=== PATIENT | female | born 1995 | race Caucasian/White ===

== ENCOUNTER → 2020-05-03 | Outpatient (CLI) | payer MEDICAID, SELFPAY ==
[2020-05-03 16:23] LABS: Color, Urine Yellow (Yellow); Glucose, Dipstick Normal (Normal); Ketone-Dipstick Negative (Negative); Leukocyte Esterase-Dipstick 25 /ul (Negative); Nitrite-Dipstick Negative (Negative); Occult Blood-Urine Negative /ul (Negative); Protein-Dipstick Negative (Negative); Urine Bilirubin Dipstick Negative (Negative); Urine Clarity Sl. Cloudy (Clear); Urine Urobilinogen Normal (Normal)
[2020-05-03 16:33] LABS: Amphetamine Urine VISTA NEGATIVE (<1000 ng/mL); Barbiturate Urine VISTA NEGATIVE (< 200 ng/mL); Benzodiazepine Urine VISTA NEGATIVE (< 200 ng/mL); Cocaine Urine VISTA NEGATIVE (< 300 ng/mL); Ecstacy Urine VISTA NEGATIVE (< 500 ng/mL); Methadone Urine VISTA NEGATIVE (< 300 ng/mL); PCP Urine VISTA NEGATIVE (< 25 ng/mL); THC Urine VISTA NEGATIVE (< 50 ng/mL); Vista UDS pH Range 6
[2020-05-03 17:21] LABS: Absolute Lymphocyte Count 2.15 X10^3/uL (0.83-4.51); Absolute Neutrophil Count 8.6 X10^3/uL (2.0-7.7); Basophil# 0.05 X10^3/uL; Basophil% 0.4 % (0-1); Eosinophil# 0.31 X10^3/uL; Eosinophils% 2.6 % (0-5); Hematocrit 40.4 % (37-47); Hemoglobin 13.8 g/dL (12.0-15.0); Lymphocyte # 2.15 X10^3/ul (4.0); Lymphocyte % 17.9 % (19-41); Mean Corp Hgb Conc 34.2 g/dL (32-36); Mean Corpuscular Hgb 30.7 pg (27.0-32.0); Mean Platelet Vol. 11.5 fl (6.2-12.0); Monocyte% 7.5 % (0-10); NRBC Flagged by Analyzer 0 % (0-5); Neutrophil # 8.56 X10^3/uL (2.7-7.7); Neutrophil % 71.3 % (47-70); Platelet Count 251 K/mm3 (150-450); RBC Distribution Width CV 13.2 % (11.6-14.6); RBC Distribution Width SD 43.3 fl (35.1-43.9); Red Blood Count 4.49 M/mm3 (4.2-5.4)
[2020-05-04 11:34] LABS: HIV - WCH Non-Reactive (Nonreactive); Hepatitis B Surface Antigen Non-Reactive (Nonreactive); Hepatitis C Antibody Non-Reactive (Nonreactive); Rubella IgG 14.5 IU/mL
[2020-05-08 03:06] LABS: Chlamydia By Nucleic Acid AMP Negative (Negative)
[2020-05-08 10:44] LABS: Gonococcus By Nucleic Acid AMP Negative (Negative)
[2020-05-08 13:35] LABS: HPV Reflexed? NOT INDICATED
[2020-05-10 05:27] LABS: Prenatal RPR NONREACTIVE (NONREACTIVE)
== END | disposition home or self-care (01) ==
LOC: WOBLAB 15:22
PROVIDERS: Visit Provider Student in an Organized Health Care Education/Training Program
DX: Z34.81 Encounter for supervision of other normal pregnancy, first trimester (principal)
CPT/HCPCS: 36415; 80307; 81002; 85025; 86703; 86762; 86803; 86870; 87340; 87491; 87591; 88175; G0145

== ENCOUNTER → 2020-05-22 | Outpatient (CLI) | payer MEDICAID, SELFPAY | END | disposition home or self-care (01) | LOC: WOBLAB 15:56 | PROVIDERS: Visit Provider Student in an Organized Health Care Education/Training Program | DX: O36.0990 Maternal care for other rhesus isoimmunization, unspecified trimester, not applicable or unspecified (principal); Z3A.00 Weeks of gestation of pregnancy not specified | CPT/HCPCS: 36415; 86850; 86870; 86900; 86901 ==

== ENCOUNTER → 2020-07-27 13:04 | Outpatient (CLI) | payer MEDICAID, SELFPAY ==
[2020-07-27 14:17] LABS: Hematocrit 38.2 % (37-47); Hemoglobin 12.6 g/dL (12.0-15.0); Mean Corpuscular Hgb 28.8 pg (27.0-32.0); Mean Corpuscular Volume 87.4 fL (81-99); Mean Platelet Vol. 11.8 fl (6.2-12.0); Platelet Count 223 K/mm3 (150-450); RBC Distribution Width CV 13.2 % (11.6-14.6); RBC Distribution Width SD 42.3 fl (35.1-43.9); Red Blood Count 4.37 M/mm3 (4.2-5.4); White Blood Count 9.5 K/mm3 (4.4-11.0)
[2020-07-27 14:27] LABS: ALB/GLOB Ratio 0.7 RATIO (0.9-2.4); AST(SGOT) 10 U/L (15-37); Alanine Aminotransfer ALT/SGPT 30 U/L (13-56); Albumin, Serum 2.8 g/dL (3.2-5.0); Alkaline Phosphatase 70 U/L (45-117); Anion Gap 5 (5-15); BUN 6 mg/dL (7-18); BUN/Creat Ratio 9.3 RATIO (10-20); Calcium,Total 8.3 mg/dL (8.5-10.1); Chloride 106 mmol/L (98-107); Creatinine, Serum 0.65 mg/dL (0.55-1.02); EST Glomerular Filtration Rate 117 mL/min (>60); Est Glom Filt Rate - Afr Amer 141 mL/min (>60); Globulin 4.1 g/dL (2.2-4.2); Glucose 114 mg/dL (74-106); Potassium 3.4 mmol/L (3.5-5.1); Protein, Total 6.9 g/dL (6.4-8.2); Sodium Level 137 mmol/L (136-145); T4 Free Direct 0.88 ng/dL (0.76-1.46); Thyroid Stim Hormone (TSH) 1.11 uIU/mL (0.358-3.74)
== END ==
PROVIDERS: Visit Provider Obstetrics & Gynecology
DX: O26.812 Pregnancy related exhaustion and fatigue, second trimester (principal); Z3A.00 Weeks of gestation of pregnancy not specified
CPT/HCPCS: 36415; 80053; 84439; 84443; 85027

== ENCOUNTER → 2020-09-10 14:07 | Outpatient (CLI) | payer MEDICAID, SELFPAY ==
[2020-09-10 15:47] LABS: Hematocrit 35.5 % (37-47); Hemoglobin 11.5 g/dL (12.0-15.0); Mean Corp Hgb Conc 32.4 g/dL (32-36); Mean Corpuscular Hgb 28.7 pg (27.0-32.0); Mean Corpuscular Volume 88.5 fL (81-99); Mean Platelet Vol. 11.8 fl (6.2-12.0); Platelet Count 256 K/mm3 (150-450); RBC Distribution Width CV 14.8 % (11.6-14.6); RBC Distribution Width SD 47.7 fl (35.1-43.9); Red Blood Count 4.01 M/mm3 (4.2-5.4); White Blood Count 11.3 K/mm3 (4.4-11.0)
[2020-09-10 15:55] LABS: Glucose Challenge Gest 1H 50g 101 mg/dL (70-140)
== END ==
PROVIDERS: Visit Provider Obstetrics & Gynecology
DX: Z34.82 Encounter for supervision of other normal pregnancy, second trimester (principal)
CPT/HCPCS: 36415; 82950; 85027

== ENCOUNTER → 2020-10-08 16:51 | Outpatient (CLI) | payer MEDICAID, SELFPAY | PROVIDERS: Visit Provider Obstetrics & Gynecology | DX: Z34.83 Encounter for supervision of other normal pregnancy, third trimester (principal) | CPT/HCPCS: 36415; 86850 ==

== ENCOUNTER → 2020-12-04 | Outpatient (CLI) | payer MEDICAID, SELFPAY | END | disposition home or self-care (01) | LOC: LABSPEC 15:22 | PROVIDERS: Visit Provider Obstetrics & Gynecology | DX: Z36.85 Encounter for antenatal screening for Streptococcus B (principal) | CPT/HCPCS: 87081 ==

== ENCOUNTER 2020-12-23 01:00 | Outpatient (CLI) | payer MEDICAID, SELFPAY ==
[2020-12-23 01:17] VITALS: BP 133/78; PULSE 78; TEMP 36.4; O2SAT 97
[2020-12-23 01:21] VITALS: BMI 34.9
[2020-12-23 01:58] LABS: ROM Internal Control Test YES-OK TO RESULT pt. (Internal QC); ROM Patient Test Negative (Negative)
[2020-12-23 03:41] VITALS: PULSE 96; O2SAT 98
[2020-12-23 05:24] VITALS: BP 126/60; PULSE 99; TEMP 37.2; O2SAT 97
[2020-12-23 08:21] VITALS: BP 140/70; PULSE 100; TEMP 36.7; O2SAT 97
--- NOTE | 2020-12-23 09:05 | OB.TRI.NOTE ---
History of Present Illness Date of Service: 12/23/20 Was patient seen by the physician?: Yes Reason For Visit: RULE OUT LABOR Date of Service: 12/23/20 Final LES: 01/02/21 Final LES Source: US <20 weeks Gestational age: 38 Weeks and 4 Days History of Present Illness: 38+ week intrauterine presents with contractions. Concerned that she might be in labor. Allergies oxycodone Allergy (Verified 12/23/20 01:19) Anaphylaxis Laboratory Studies: Laboratory Tests 12/23/20 Range/Units 01:20 Vag Amniotic Fld Detect Negative (Negative) Physical Exam Vitals: Vital Signs Temp Pulse BP Pulse Ox 98.0 F 100 140/70 H 97 12/23/20 08:21 12/23/20 08:21 12/23/20 08:21 12/23/20 08:21 NST - FHR Rate Baby A Decelerations:: Variable NST Reactive:: Yes FHR Category:: Category I Uterine Activity:: Minimal contractions noted. Impression/Plan 38+ week intrauterine with false labor. NST reactive with occasional sharp variable. Ultrasound at bedside revealed normal fluid with amniotic fluid index of approximately 12. Baby is cephalic. No change in cervix after several hours of monitoring it remains at 4/80/-2. Will discharge to home with routine labor instructions.
== END 2020-12-23 09:15 | disposition home or self-care (01) ==
LOC: WPOUT 01:10 → WP 01:11
PROVIDERS: Referring Provider Obstetrics & Gynecology; Visit Provider Obstetrics & Gynecology
DX: O47.1 False labor at or after 37 completed weeks of gestation (principal); Z3A.38 38 weeks gestation of pregnancy
CPT/HCPCS: 59025; 59050; 84112; 99218; G0378

== ENCOUNTER 2020-12-24 23:48 | Inpatient (IN) | payer MEDICAID, SELFPAY ==
[2020-12-23 01:21] VITALS: BMI 34.9
[2020-12-24 22:27] VITALS: BP 143/78; PULSE 94
[2020-12-24 22:28] VITALS: PULSE 95; O2SAT 98
[2020-12-24 22:41] VITALS: BMI 34.7
[2020-12-24 23:08] LABS: ROM Internal Control Test YES-OK TO RESULT pt. (Internal QC); ROM Patient Test Negative (Negative)
[2020-12-25] VITALS (53 sets, daily range): BP systolic 111–146; BP diastolic 59–81; PULSE 82–133; RESP 18–20; TEMP 36.1–37.5; O2SAT 96–100
[2020-12-25] MEDS: Lactated Ringers 1,000 ML 50 ML IV
[2020-12-25] MEDS: Lactated Ringers 500 ML 999 ML IV (00:05)
[2020-12-25 00:17] LABS: Absolute Lymphocyte Count 1.93 X10^3/uL (0.83-4.51); Absolute Neutrophil Count 9.4 X10^3/uL (2.0-7.7); Basophil# 0.03 X10^3/uL; Basophil% 0.2 % (0-1); Eosinophil# 0.11 X10^3/uL; Eosinophils% 0.9 % (0-5); Hematocrit 36.1 % (37-47); Hemoglobin 11.6 g/dL (12.0-15.0); Lymphocyte # 1.93 X10^3/ul (4.0); Lymphocyte % 15.5 % (19-41); Mean Corp Hgb Conc 32.1 g/dL (32-36); Mean Corpuscular Hgb 26.4 pg (27.0-32.0); Mean Platelet Vol. 12.2 fl (6.2-12.0); Monocyte# 0.91 X10^3/uL; Monocyte% 7.3 % (0-10); NRBC Flagged by Analyzer 0 % (0-5); Neutrophil # 9.38 X10^3/uL (2.7-7.7); Neutrophil % 75.6 % (47-70); Platelet Count 269 K/mm3 (150-450); RBC Distribution Width CV 15.3 % (11.6-14.6); RBC Distribution Width SD 44.4 fl (35.1-43.9); White Blood Count 12.4 K/mm3 (4.4-11.0)
[2020-12-25] MEDS: fentaNYL-bupivacaine (epidural) 100 ML BAG EPIDURAL ×5 (01:35→19:37)
[2020-12-25] MEDS: Lactated Ringers 1,000 ML 200 ML IV ×4 (05:05→20:24)
--- NOTE | 2020-12-25 06:48 | HP.PCM_ITS ---
History and Physical Date of Admission: 12/24/20 HPI: 25 yo G2Po at 39/1, LES 12/31/20 by LMP, admitted overnight for labor. Reports contractions and some leaking. Denies VB. +FM. This is complicated by: Anti0D positive early in immediately after being given Rhogam, resolved. Hx of femur fracture Obstetrical History G1: EAB G2: current Past Medical History Hx of femur fracture Medications PNV Past Surgical History Denies Social History Tobacco use: denies Alcohol use: denies Illicit drug use:denies Labs Blood type: B neg Rubella: immune Hep B/C: neg/neg HIV: neg RPR: nonreactive 1 hour GTT: wnl GBS: neg 12/04 Allergies oxycodone Review of Systems General: alert and oriented HEENT: _denies change of vision Heart/lungs: _denies CP, SOB GI: _denies nausea, vomiting, dysuria, diarrhea MSK: _denies calf pain, tenderness Physical Exam Vital Signs Temp Pulse BP Pulse Ox 12/25/20 06:38 97.0 F L 94 98 12/25/20 06:37 111/60 12/25/20 05:22 91 100 12/25/20 05:21 95 118/59 L 12/25/20 04:56 97.6 F L 100 114/60 12/25/20 03:54 97.3 F L 82 119/65 12/25/20 02:41 104 H 100 12/25/20 02:36 98.3 F 89 100 12/25/20 02:31 98 115/64 100 12/25/20 02:26 88 100 12/25/20 02:21 92 100 12/25/20 02:16 104 H 100 12/25/20 02:11 106 H 100 12/25/20 02:06 92 100 12/25/20 02:01 111 H 100 12/25/20 01:57 90 126/71 H 12/25/20 01:56 98 99 12/25/20 01:51 97.6 F L 101 H 99 12/25/20 01:46 95 99 12/25/20 01:42 106 H 127/69 H 12/25/20 01:40 104 H 100 12/25/20 01:35 103 H 100 12/25/20 01:30 93 100 12/25/20 01:27 88 128/67 H 12/25/20 01:25 94 99 12/25/20 01:20 92 100 12/25/20 01:15 97 99 12/25/20 01:10 94 99 12/25/20 01:05 87 100 12/25/20 01:01 82 146/81 H 12/24/20 22:28 95 98 12/24/20 22:27 94 143/78 H General: a&o x3, NAD HEENT: normocephalic, atraumatic Cardio: no JVD Resp: no increased work in breathing Abdomen: soft, gravid, nontender Extremities: _minimal-moderate edema CE: cervical change from 4 to 5 cm per RN. ROM negative FHT:130/mod jeannette/+accel/no decel [place]:irregular Labs Laboratory Results - last 24 hr 12/24/20 12/25/20 12/25/20 22:30 00:00 00:00 WBC 12.4 H RBC 4.40 Hgb 11.6 L Hct 36.1 L MCV 82.0 MCH 26.4 L MCHC 32.1 RDW Std Deviation 44.4 H RDW Coeff of Jeannette 15.3 H Plt Count 269 MPV 12.2 H Immature Gran % (Auto) 0.500 Neut % (Auto) 75.6 H Lymph % (Auto) 15.5 L [place] % (Auto) 7.3 Eos % (Auto) 0.9 Baso % (Auto) 0.2 Absolute Neuts (auto) 9.4 H Absolute Lymphs (auto) 1.93 Nucleated RBC % 0 Vag Amniotic Fld Detect Negative Blood Type B NEGATIVE Antibody Screen NEGATIVE Assessment & Plan 25 yo G2Po at 39/1, LES 12/31/20 by LMP, admitted overnight for labor.This is complicated by: Anti0D positive early in immediately after being given Rhogam, resolved. Hx of femur fracture Admit to L&D - Routine labor orders - Augment labor with pitocin/AROM when appropriate - GBS neg - CEFM - Anesthesia to see
[2020-12-25] MEDS: Oxytocin 30 units/NS 500 ml 30 UNITS/500 ML IV.SOLN IV (08:07)
[2020-12-25] MEDS: Ondansetron 4 MG/2 ML Vial IV (13:20)
--- NOTE | 2020-12-25 14:55 | PCM.PN.OB ---
Subjective: Patient overall comfortable. But tired after 1 hour of pushing. - Physical Exam Vitals/I&O's: Vital Signs Temp Pulse BP Pulse Ox 97.0 F L 85 124/75 H 96 12/25/20 08:39 12/25/20 14:14 12/25/20 14:14 12/25/20 13:02 Weight: 228 lb 12.8 oz Body Mass Index (BMI) 34.7 Intake and Output for Last 24 Hours 12/23/20 12/24/20 12/25/20 23:59 23:59 23:59 Intake Total 2884.14 / 2884.14 Output Total 800 / 800 Balance 2084.14 / 2084.14 General: Alert, Oriented x3, Cooperative HEENT: Atraumatic, PERRLA, Normocephalic Oral: Moist Mucosa Neck: Supple Extremities: No clubbing, No cyanosis Neurological: Neuro grossly intact Psych/Mental Status: Normal Affect, Appropriate, Alert and oriented to time, place, person, mood and affect Microbiology Past 72 Hours 12/25/20 00:00 Mucosa - Nose SARS-CoV-2 Antigen (Rapid) - Final Laboratory Results 12/24/20 22:30: Vag Amniotic Fld Detect Negative 12/25/20 00:00: WBC 12.4 H, RBC 4.40, Hgb 11.6 L, Hct 36.1 L, MCV 82.0, MCH 26.4 L, MCHC 32.1, RDW Std Deviation 44.4 H, RDW Coeff of Jeannette 15.3 H, Plt Count 269, MPV 12.2 H, Immature Gran % (Auto) 0.500, Neut % (Auto) 75.6 H, Lymph % (Auto) 15.5 L, [place] % (Auto) 7.3, Eos % (Auto) 0.9, Baso % (Auto) 0.2, Absolute Neuts (auto) 9.4 H, Absolute Lymphs (auto) 1.93, Nucleated RBC % 0 12/25/20 00:00: Blood Type B NEGATIVE, Antibody Screen NEGATIVE Current Medications Acetaminophen (Acetaminophen 500 Mg Tablet) 500 - 1,000 mg PO Q6H PRN PRN PRN Reason: Pain Score 1-3 Al Hydroxide/Mg Hydroxide (Mag Hydrox/Al Hydrox/Simeth 30 Ml Udc) 15 - 30 ml PO Q4H PRN PRN PRN Reason: INDIGESTION Citric Acid/Sodium Citrate (Sodium Citrate/Citric Acid 30 Ml Udc) 30 ml PO X1 PRN PRN Reason: Section Ephedrine Sulfate (Ephedrine Sulfate 50 Mg/Ml Ampul) 10 mg IV Q10M PRN PRN Reason: hypotension Ephedrine Sulfate (Ephedrine Sulfate 50 Mg/Ml Ampul) 10 mg IM Q30M PRN PRN Reason: hypotension Fentanyl Citrate (Fentanyl 100 Mcg/2 Ml Ampul) 25 - 50 mcg IV Q2H PRN PRN PRN Reason: Pain Score 4-10 Fentanyl/Bupivacaine/Sodium Chlor (Fentanyl-Bupivacaine (Epidural) 100 Ml Bag) 0 ml EPIDURAL UD [facility]; Protocol Last Admin: 12/25/20 10:17 Dose: 100 ml Documented by: Lactated Ringer's () 500 mls @ 999 mls/hr IV .Q31M PRN PRN Reason: Epidural Last Infusion: 12/25/20 00:36 Dose: Infused Documented by: Lactated Ringer's () 500 mls @ 999 mls/hr IV .Q31M PRN PRN Reason: Corrective Measures Lactated Ringer's () 1,000 mls @ 50 mls/hr IV .Q20H [facility] Last Admin: 12/25/20 10:17 Dose: 200 mls/hr Documented by: Oxytocin/Sodium Chloride () 30 units in 500 mls @ 2 mls/hr IV .Q250H [facility] Last Infusion: 12/25/20 14:14 Dose: 8 mls/hr Documented by: Nalbuphine HCl (Nalbuphine 10 Mg/Ml Ampul) 5 mg IV Q3H PRN PRN PRN Reason: ITCHING Naloxone HCl (Naloxone 0.4 Mg/Ml Syringe) 0.02 mg IV Q1M PRN PRN Reason: RR <10 and pt unresponsive Ondansetron HCl (Ondansetron 4 Mg/2 Ml Vial) 4 mg IV Q4H PRN PRN PRN Reason: NAUSEA Last Admin: 12/25/20 13:20 Dose: 4 mg Documented by: Prochlorperazine Edisylate (Prochlorperazine 10 Mg/2 Ml Vial) 10 mg IV Q6H PRN PRN PRN Reason: NAUSEA Sodium Chloride (0.9% Saline Lock 10 Ml Syringe) 10 - 40 ml IV X1 PRN PRN Reason: SALINE FLUSH Medical Necessity - Tobacco Use Smoking Status: Former smoker Assessment/Plan Patient seen and examined. Called by nursing and inform patient was complete at 1130 labor down per RN for 1 hour. Started pushing at 1245, did 1 hour of pushing with no progression and maternal exhaustion. Upon my examination patient 10/100/0 to -1, no progress with pushing during exam. Educated patient on findings. Discussed pushing for 1-2 more hours versus . Patient at this time based on station not a good candidate for operative delivery. Patient states desire to attempt pushing, educated on maternal exhaustion. Will recheck in 1 to 2 hours if no progress and maternal exhaustion continues will consider primary section.
[2020-12-25] MEDS: 0.9% Saline Lock 10 ML Syringe IV ×3 (19:57→23:30)
--- NOTE | 2020-12-25 21:23 | PCM.PN.OB ---
Subjective: Patient comfortable. Tired with pushing - Physical Exam Vitals/I&O's: Vital Signs Temp Pulse Resp BP Pulse Ox 98.2 F 101 H 20 H 131/67 H 100 12/25/20 20:00 12/25/20 21:18 12/25/20 20:00 12/25/20 20:02 12/25/20 21:18 Oxygen Delivery Method Room Air Weight: 228 lb 12.8 oz Body Mass Index (BMI) 34.7 Intake and Output for Last 24 Hours 12/23/20 12/24/20 12/25/20 23:59 23:59 23:59 Intake Total 6367.47 / 6367.47 Output Total 1400 / 1400 Balance 4967.47 / 4967.47 General: Alert, Oriented x3, Cooperative HEENT: Atraumatic, Normocephalic Oral: Moist Mucosa Neck: Supple Neurological: Neuro grossly intact Psych/Mental Status: Normal Affect, Appropriate, Alert and oriented to time, place, person, mood and affect Microbiology Past 72 Hours 12/25/20 00:00 Mucosa - Nose SARS-CoV-2 Antigen (Rapid) - Final Laboratory Results 12/24/20 22:30: Vag Amniotic Fld Detect Negative 12/25/20 00:00: WBC 12.4 H, RBC 4.40, Hgb 11.6 L, Hct 36.1 L, MCV 82.0, MCH 26.4 L, MCHC 32.1, RDW Std Deviation 44.4 H, RDW Coeff of Jeannette 15.3 H, Plt Count 269, MPV 12.2 H, Immature Gran % (Auto) 0.500, Neut % (Auto) 75.6 H, Lymph % (Auto) 15.5 L, [place] % (Auto) 7.3, Eos % (Auto) 0.9, Baso % (Auto) 0.2, Absolute Neuts (auto) 9.4 H, Absolute Lymphs (auto) 1.93, Nucleated RBC % 0 12/25/20 00:00: Blood Type B NEGATIVE, Antibody Screen NEGATIVE Current Medications Acetaminophen (Acetaminophen 500 Mg Tablet) 500 - 1,000 mg PO Q6H PRN PRN PRN Reason: Pain Score 1-3 Al Hydroxide/Mg Hydroxide (Mag Hydrox/Al Hydrox/Simeth 30 Ml Udc) 15 - 30 ml PO Q4H PRN PRN PRN Reason: INDIGESTION Citric Acid/Sodium Citrate (Sodium Citrate/Citric Acid 30 Ml Udc) 30 ml PO X1 PRN PRN Reason: Section Ephedrine Sulfate (Ephedrine Sulfate 50 Mg/Ml Ampul) 10 mg IV Q10M PRN PRN Reason: hypotension Ephedrine Sulfate (Ephedrine Sulfate 50 Mg/Ml Ampul) 10 mg IM Q30M PRN PRN Reason: hypotension Fentanyl Citrate (Fentanyl 100 Mcg/2 Ml Ampul) 25 - 50 mcg IV Q2H PRN PRN PRN Reason: Pain Score 4-10 Fentanyl/Bupivacaine/Sodium Chlor (Fentanyl-Bupivacaine (Epidural) 100 Ml Bag) 0 ml EPIDURAL UD [facility]; Protocol Last Admin: 12/25/20 19:37 Dose: 100 ml Documented by: Lactated Ringer's () 500 mls @ 999 mls/hr IV .Q31M PRN PRN Reason: Epidural Last Infusion: 12/25/20 00:36 Dose: Infused Documented by: Lactated Ringer's () 500 mls @ 999 mls/hr IV .Q31M PRN PRN Reason: Corrective Measures Lactated Ringer's () 1,000 mls @ 50 mls/hr IV .Q20H [facility] Last Admin: 12/25/20 20:24 Dose: 200 mls/hr Documented by: Oxytocin/Sodium Chloride () 30 units in 500 mls @ 2 mls/hr IV .Q250H [facility] Last Infusion: 12/25/20 14:14 Dose: 8 mls/hr Documented by: Azithromycin 500 mg/ Dextrose 255 mls @ 250 mls/hr IV X1 ONE Stop: 12/25/20 22:17 Cefazolin Sodium 2 gm/ Sodium (Chloride) 110 mls @ 150 mls/hr IV X1 ONE Stop: 12/25/20 21:59 Nalbuphine HCl (Nalbuphine 10 Mg/Ml Ampul) 5 mg IV Q3H PRN PRN PRN Reason: ITCHING Naloxone HCl (Naloxone 0.4 Mg/Ml Syringe) 0.02 mg IV Q1M PRN PRN Reason: RR <10 and pt unresponsive Ondansetron HCl (Ondansetron 4 Mg/2 Ml Vial) 4 mg IV Q4H PRN PRN PRN Reason: NAUSEA Last Admin: 12/25/20 13:20 Dose: 4 mg Documented by: Prochlorperazine Edisylate (Prochlorperazine 10 Mg/2 Ml Vial) 10 mg IV Q6H PRN PRN PRN Reason: NAUSEA Sodium Chloride (0.9% Saline Lock 10 Ml Syringe) 10 - 40 ml IV X1 PRN PRN Reason: SALINE FLUSH Last Admin: 12/25/20 20:31 Dose: 10 ml Documented by: Medical Necessity - Tobacco Use Smoking Status: Former smoker Assessment/Plan Patient seen and examined several times. 1899 reevaluated cervical exam 10/100/+1 position LOT. At that time discussed with patient continued pushing versus operative delivery versus section. After long conversation risk benefits alternatives of each patient discussed she would like to keep pushing for 1 more hour. Patient at that time with left hip pain with pushing desired redosing of epidural, discussed with anesthesia and anesthesia performed redosing. After 1 hour plus of pushing patient reexamined now more comfortable cervical exam 10/100/+2 position LOT. Overall patient in better spirits but exhaustion at this point with pushing greater than 5 hours. Rediscussed pushing versus operative delivery versus section. At this time patient with maternal exhaustion and declines operative delivery, elects for primary section. Educated on the risk benefits alternatives of section include but are not limited to visceral or vascular injury, prolonged hospitalization, blood loss and need for transfusion, need for repeat sections in future pregnancies. Patient state understanding wish to proceed. For 2 g of Ancef and 500 mg azithromycin.
[2020-12-25] MEDS: Sodium Citrate/Citric Acid 30 ML UDC PO (21:40)
[2020-12-25] MEDS: Cefazolin 2 GM in 0.9% Normal Saline 100 ML IV (22:10)
--- NOTE | 2020-12-25 23:08 | DCINST_ITS ---
Discharge Diet: No Restrictions Discharge Activity: Return to Normal Activity, May Drive, May not drive while taking narcotic pain medications., May Shower, - - No tub baths for 2 weeks May resume sexual activity in: 4-6 weeks Lifting Restrictions: No lifting over 25 pounds for 3 weeks Call your doctor if your incision/area has: Continuous Slow Oozing, Foul Smelling Discharge Call your doctor if you observe: Fever of 101 or Higher, Shortness of breath, Chest pain Additional Instructions: If you experience any of the following, contact your healthcare provider. * Bleeding that soaks a pad every hour for 2 hours * Fever 100.4 or higher * Unrelieved incision or abdominal pain * Swelling, redness, discharge or bleeding from your incision or episiotomy site * Your incision begins to separate * Problems urinating (including inability to urinate or burning while urinating). * Visual changes * Severe headache * Flu-like symptoms * Pain or redness in one of both of your breasts * Pain, warmth, tenderness or swelling in your legs, especially the calf area * Frequent nausea and vomiting * Symptoms of depression or anxiety If you experience any of the following, call 911 or go to the nearest Emergency Room. * Chest pain * Problems breathing * Seizure activity * Partial or complete paralysis of a body part, slurred speech, weakness or drooping of the face, or a sudden inability to walk or hold your balance Allergies/Adverse Reactions: Allergies oxycodone Allergy (Verified 12/24/20 22:42) Anaphylaxis Medications to take at Discharge Docosahexanoic Acid [ Dha] 200 mg PO DAILY 12/23/20 Follow-Up: Call to make an appointment with your doctor for an incision check in 1-2 weeks. You will also need a 6 week post- follow up appointment. Test results from this visit will be discussed in further detail at your follow- up appointment, if applicable. Please Follow Up With: Martin Caban MD When: 2-week postoperative check, 4 to 6-week visit
--- NOTE | 2020-12-25 23:10 | OP.PCM_ITS ---
Delivery engineering designer: America Camejo Date of Procedure: 12/25/20 Pre-Operative Diagnosis: Term, failure to progress, maternal exhaustion Post-Operative Diagnosis: Term, failure to progress, maternal exhaustion Description of Procedure: Procedure: Primary section Via Pfannenstiel incision Surgeon: Martin Caban MD Anesthesia: Epidural EBL: 800 cc Fluids: 1000 cc Urine output: 300 cc Complications: None Specimen: None Findings: Female in vertex position Apgars 8/9. Normal uterus, tubes, and ovaries Consent: Patient arrived in labor became complete and pushed for greater than 5 hours with failure to progress in need of primary section. Patient understands the risk of the procedure include but are not limited to visceral or vascular injury, prolonged hospitalization, blood loss and need for transfusion, reoperation. Patient state understanding wish to proceed. All questions were answered consent was signed. Procedure: Patient was brought back to the OR where epidural anesthesia found to be a dequate. 2 g of Ancef and 500 mg of azithromycin were given for infection prophylaxis. Patient was pared and draped in a dorsal supine position with leftward tilt. Pfannenstiel incision made skin with a scalpel. Incision was carried down to the fascia with a scalpel. The fascia was excised extended laterally. Inferior aspect of the fascia was grasped with a clamp and the underlying rectus and pyramidalis ulcer dissected off sharply with Segovia scissors. In a similar fashion superior aspect of the fascia was grasped with a Dillon clamp and the underlying rectus muscle was dissected off sharply. Rectus muscle was dissected at the midline down to the level of the pubic symphysis. Preperitoneal fat tissue was noted and peritoneum was entered bluntly. Peritoneum was extended superiorly and inferiorly with good visualization of bladder. Vesicouterine peritoneum was noted low transverse hysterotomy incision was made. Gentle fundal pressure was applied once the head was brought into the incision and the bladder blade was removed. Head and shoulders were delivered with ease. Cord was cut clamped. They was handed off to nursing. Placenta was delivered via cord traction and fundal massage. Uterus was exteriorized and wiped out with dry laparotomy sponges in order to remove remaining placental membranes. IV oxytocin was initiated in order to facilitate uterine contractions. Uterus was closed in continuous running fashion. Left hysterotomy extension was noted and repaired in 2 layers. Second layer was performed on the hysterotomy. Good hemostasis was noted. Uterus was placed back in the abdominal cavity and good hemostasis was noted. Rectus muscles were reapproximated with horizontal mattress suture. Fascia was closed in a continuous running fashion. Skin was closed in a subcuticular fashion. Good hemostasis was noted. All counts correct x2. Patient tolerated procedure well was brought to recovery in stable condition.
[2020-12-25] MEDS: Oxytocin 30 units/NS 500 ml 30 UNITS/500 ML IV.SOLN 167 UNITS IV (23:20)
[2020-12-25] MEDS: Ketorolac 30 MG/ML Syringe IV (23:30)
[2020-12-25] MEDS: Acetaminophen 500 MG Tablet 1000 MG PO (23:31)
[2020-12-26] VITALS (17 sets, daily range): BP systolic 104–141; BP diastolic 53–77; PULSE 89–116; RESP 14–20; TEMP 36.1–36.6; O2SAT 94–98
--- NOTE | 2020-12-26 02:26 | NURSING ---
report received from terrell. this RN to assume care of pt at this time.
[2020-12-26 04:08] LABS: Hematocrit 30.7 % (37-47); Hemoglobin 9.7 g/dL (12.0-15.0); Mean Corp Hgb Conc 31.6 g/dL (32-36); Mean Corpuscular Hgb 26.6 pg (27.0-32.0); Mean Corpuscular Volume 84.3 fL (81-99); Platelet Count 206 K/mm3 (150-450); RBC Distribution Width CV 15.5 % (11.6-14.6); RBC Distribution Width SD 46.5 fl (35.1-43.9); Red Blood Count 3.64 M/mm3 (4.2-5.4); White Blood Count 16.2 K/mm3 (4.4-11.0)
[2020-12-26] MEDS: Lactated Ringers 1,000 ML 100 ML IV (05:00)
[2020-12-26] MEDS: Ketorolac 30 MG/ML Syringe IV ×3 (05:34→16:58)
[2020-12-26] MEDS: Acetaminophen 500 MG Tablet 1000 MG PO ×4 (05:34→23:34)
[2020-12-26] MEDS: 0.9% Saline Lock 10 ML Syringe IV ×3 (05:34→16:58)
--- NOTE | 2020-12-26 05:57 | NURSING ---
this RN continually attempting to get pt to get out of bed to ambulate. this RN suggesting for pt to stand at bedside and march in place xfew minutes. if pt able to tolerate that, this RN plan to remove fernandez catheter. pt falling asleep mid sentence and states I can't do it. Come back later. Will continue to try to get pt to ambulate and understand the importance of moving post op to prevent blood clots.
--- NOTE | 2020-12-26 09:21 | PN.OBGYN_ITS ---
Subjective: No overnight complaints. Pain well controlled. - Physical Exam Vitals/I&O's: Vital Signs Temp Pulse Resp BP Pulse Ox 97.4 F L 106 H 16 123/57 H 96 12/26/20 08:22 12/26/20 08:22 12/26/20 08:22 12/26/20 08:22 12/26/20 08:22 Oxygen Delivery Method Room Air Weight: 228 lb 12.8 oz Body Mass Index (BMI) 34.7 Intake and Output for Last 24 Hours 12/24/20 12/25/20 12/26/20 23:59 23:59 23:59 Intake Total 7091.80 / 7091.80 1500.00 / 1500.00 Output Total 2200 / 2200 900 / 900 Balance 4891.80 / 4891.80 600.00 / 600.00 General: Alert, Oriented x3, Cooperative, No apparent distress HEENT: Atraumatic, Normocephalic Oral: Moist Mucosa Neck: Supple Extremities: No clubbing, No cyanosis Neurological: Neuro grossly intact Psych/Mental Status: Normal Affect, Appropriate, Alert and oriented to time, place, person, mood and affect Microbiology Past 72 Hours 12/25/20 00:00 Mucosa - Nose SARS-CoV-2 Antigen (Rapid) - Final Laboratory Results 12/26/20 03:43: WBC 16.2 H, RBC 3.64 L, Hgb 9.7 L, Hct 30.7 L, MCV 84.3, MCH 26.6 L, MCHC 31.6 L, RDW Std Deviation 46.5 H, RDW Coeff of Jeannette 15.5 H, Plt Count 206, MPV 12.0 12/26/20 03:43: Screen NEGATIVE, Baby's Blood Type O POSITIVE, Baby's KATHY NEGATIVE Current Medications Acetaminophen (Acetaminophen 500 Mg Tablet) 1,000 mg PO Q6 TINO Last Admin: 12/26/20 05:34 Dose: 1,000 mg Documented by: Bisacodyl (Bisacodyl 10 Mg Suppository) 10 mg RC UD PRN PRN Reason: If no BM Diphenhydramine HCl (Diphenhydramine 25 Mg Capsule) 25 mg PO Q6H PRN PRN PRN Reason: ITCHING Stop: 12/27/20 03:26 Enoxaparin Sodium (Enoxaparin 40 Mg/0.4 Ml Syringe) 40 mg SC DAILY [facility] Hydrocortisone (Hydrocortisone 2.5% Crm) 1 applic TOPICAL TID PRN PRN; Protocol PRN Reason: Discomfort Hydromorphone HCl (Hydromorphone 1 Mg/Ml Syringe) 0.5 - 1.5 mg IV Q3H PRN PRN PRN Reason: Pain Score 4-10 Stop: 12/26/20 23:22 Lactated Ringer's () 1,000 mls @ 100 mls/hr IV .Q10H [facility] Last Infusion: 12/26/20 08:25 Dose: Infused Documented by: Ibuprofen (Ibuprofen 600 Mg Tablet) 600 mg PO Q6 TINO Ketorolac Tromethamine (Ketorolac 30 Mg/Ml Syringe) 30 mg IV Q6H [facility] Stop: 12/26/20 17:22 Last Admin: 12/26/20 05:34 Dose: 30 mg Documented by: Nalbuphine HCl (Nalbuphine 10 Mg/Ml Ampul) 5 mg IV Q3H PRN PRN PRN Reason: ITCHING Stop: 12/27/20 03:26 Naloxone HCl (Naloxone 0.4 Mg/Ml Syringe) 0.02 mg IV Q1M PRN PRN Reason: RR <10 and pt unresponsive Ondansetron HCl (Ondansetron 4 Mg/2 Ml Vial) 4 mg IV Q4H PRN PRN PRN Reason: Nausea Prochlorperazine Edisylate (Prochlorperazine 10 Mg/2 Ml Vial) 10 mg IV Q6H PRN PRN PRN Reason: NAUSEA Senna/Docusate Sodium (Senna/Docusate Sodium 1 Tablet) 0 tablet PO DAILY [facility] Simethicone (Simethicone 80 Mg Tablet) 80 mg PO PCHS PRN PRN Reason: Indigestion/stomach pain Sodium Chloride (0.9% Saline Lock 10 Ml Syringe) 5 - 15 ml IV UD PRN PRN Reason: SALINE FLUSH Last Admin: 12/26/20 05:34 Dose: 10 ml Documented by: Medical Necessity - Tobacco Use Smoking Status: Former smoker Assessment/Plan Postoperative day 1 status post primary section for failure to progress. Pain well controlled. Will likely discharge home tomorrow
[2020-12-26] MEDS: Enoxaparin 40 MG/0.4 ML Syringe SC (11:35)
[2020-12-26] MEDS: Ibuprofen 600 MG Tablet PO (23:34)
[2020-12-27 00:45] VITALS: BP 109/56; PULSE 82; RESP 16; TEMP 36.1; O2SAT 97
[2020-12-27 04:30] VITALS: BP 110/62; PULSE 80; RESP 16; TEMP 36.6; O2SAT 97
[2020-12-27] MEDS: Acetaminophen 500 MG Tablet 1000 MG PO ×2 (05:38→12:19)
[2020-12-27] MEDS: Ibuprofen 600 MG Tablet PO ×2 (05:38→12:19)
--- NOTE | 2020-12-27 07:37 | PN.OBGYN_ITS ---
Subjective: Overnight complaints. Pain well controlled. - Physical Exam Vitals/I&O's: Vital Signs Temp Pulse Resp BP Pulse Ox 97.8 F 80 16 110/62 97 12/27/20 04:30 12/27/20 04:30 12/27/20 04:30 12/27/20 04:30 12/27/20 04:30 Oxygen Delivery Method Room Air Weight: 228 lb 12.8 oz Body Mass Index (BMI) 34.7 Intake and Output for Last 24 Hours 12/25/20 12/26/20 12/27/20 23:59 23:59 23:59 Intake Total 7091.80 / 7091.80 1500.00 / 1500.00 Output Total 2200 / 2200 1900 / 1900 Balance 4891.80 / 4891.80 -400.00 / -400.00 General: Alert, Oriented x3, Cooperative, No apparent distress HEENT: Atraumatic, Normocephalic Oral: Moist Mucosa Neck: Supple Abdomen: Soft, Non Tender Extremities: No clubbing, No cyanosis Neurological: Neuro grossly intact Psych/Mental Status: Normal Affect, Appropriate, Alert and oriented to time, place, person, mood and affect Microbiology Past 72 Hours 12/25/20 00:00 Mucosa - Nose SARS-CoV-2 Antigen (Rapid) - Final Current Medications Acetaminophen (Acetaminophen 500 Mg Tablet) 1,000 mg PO Q6 [facility] Last Admin: 12/27/20 05:38 Dose: 1,000 mg Documented by: Bisacodyl (Bisacodyl 10 Mg Suppository) 10 mg RC UD PRN PRN Reason: If no BM Enoxaparin Sodium (Enoxaparin 40 Mg/0.4 Ml Syringe) 40 mg SC DAILY [facility] Last Admin: 12/26/20 11:35 Dose: 40 mg Documented by: Hydrocortisone (Hydrocortisone 2.5% Crm) 1 applic TOPICAL TID PRN PRN; Protocol PRN Reason: Discomfort Ibuprofen (Ibuprofen 600 Mg Tablet) 600 mg PO Q6 [facility] Last Admin: 12/27/20 05:38 Dose: 600 mg Documented by: Naloxone HCl (Naloxone 0.4 Mg/Ml Syringe) 0.02 mg IV Q1M PRN PRN Reason: RR <10 and pt unresponsive Ondansetron HCl (Ondansetron 4 Mg/2 Ml Vial) 4 mg IV Q4H PRN PRN PRN Reason: Nausea Prochlorperazine Edisylate (Prochlorperazine 10 Mg/2 Ml Vial) 10 mg IV Q6H PRN PRN PRN Reason: NAUSEA Senna/Docusate Sodium (Senna/Docusate Sodium 1 Tablet) 0 tablet PO DAILY [facility] Last Admin: 12/26/20 11:21 Dose: Not Given Documented by: Simethicone (Simethicone 80 Mg Tablet) 80 mg PO PCHS PRN PRN Reason: Indigestion/stomach pain Last Admin: 12/26/20 23:34 Dose: 80 mg Documented by: Sodium Chloride (0.9% Saline Lock 10 Ml Syringe) 5 - 15 ml IV UD PRN PRN Reason: SALINE FLUSH Last Admin: 12/26/20 16:58 Dose: 10 ml Documented by: Medical Necessity - Tobacco Use Smoking Status: Former smoker Assessment/Plan Postoperative day 2 status post primary section for failure to progress. Breast-feeding. Pain well controlled. Will discharge home today
[2020-12-27 09:20] VITALS: BP 100/63; PULSE 89; RESP 18; TEMP 36.6
[2020-12-27] MEDS: Enoxaparin 40 MG/0.4 ML Syringe SC (11:25)
[2020-12-27 15:00] VITALS: BP 127/58; PULSE 97; RESP 18; TEMP 36.6
--- NOTE | 2020-12-28 16:40 | DS.PCM_ITS ---
Discharge Date and Diagnosis Date of Admission: 12/24/20 Date of Discharge: 12/27/20 Hospital Course and Treatment Operations: - - Primary Procedures: None Summary of Care Provided: The patient is a 25 year old F [arrived in labor. Labor was augmented. Patient reached complete dilation pushed for greater than 5 hours and had a primary C- section for failure to progress. Had normal postoperative recovery. And discharged home on postoperative day 2] Subjective: No overnight complaints. Pain well controlled. - Physical Exam Vitals/I&O's: Vital Signs Temp Pulse Resp BP Pulse Ox 97.9 F 97 18 127/58 H 97 12/27/20 15:00 12/27/20 15:00 12/27/20 15:00 12/27/20 15:00 12/27/20 04:30 Oxygen Delivery Method Room Air Weight: 228 lb 12.8 oz Body Mass Index (BMI) 34.7 Intake and Output for Last 24 Hours 12/26/20 12/27/20 12/28/20 23:59 23:59 23:59 Intake Total 1500.00 / 1500.00 Output Total 1900 / 1900 Balance -400.00 / -400.00 General: Alert, Oriented x3, Cooperative, No apparent distress HEENT: Atraumatic, Normocephalic Oral: Moist Mucosa Neck: Supple Abdomen: Soft, Non Tender Extremities: No clubbing, No cyanosis Neurological: Neuro grossly intact Psych/Mental Status: Normal Affect, Appropriate, Alert and oriented to time, place, person, mood and affect Discharge Diet: No Restrictions Discharge Activity: Return to Normal Activity, May Drive, May not drive while taking narcotic pain medications., May Shower, - - No tub baths for 2 weeks May resume sexual activity in: 4-6 weeks Call your doctor if your incision/area has: Continuous Slow Oozing, Foul Smelling Discharge Call your doctor if you observe: Fever of 101 or Higher, Shortness of breath, Chest pain Home Medications: Medications to take at Discharge Docosahexanoic Acid [ Dha] 200 mg PO DAILY 12/23/20 Oxycodone [Oxyir] 5 mg PO Q6H PRN PRN 4 Days #16 tab 12/27/20 Following Prescriptions Were Given to Patient: Oxycodone [Oxyir] 5 mg PO Q6H PRN PRN 4 Days #16 tab PRN Reason: Pain Score 6-10 Transmission Status: Received by [id number] Please Follow Up With: Martin Caban MD When: 2-week postoperative check, 4 to 6-week visit Medical Necessity - Tobacco Use Smoking Status: Former smoker Meaningful Use Info Meaningful Use Diagnoses (Choose all that apply): None applicable
== END 2020-12-27 15:00 | disposition home or self-care (01) | DRG 540 ==
LOC: WPOUT 23:50 → WP 23:50
PROVIDERS: Student in an Organized Health Care Education/Training Program; Admitting Provider Obstetrics & Gynecology; Visit Provider Obstetrics & Gynecology
DX: O32.4XX0 Maternal care for high head at term, not applicable or unspecified (principal); Z3A.39 39 weeks gestation of pregnancy; Z37.0 Single live birth
CPT/HCPCS: 59025; 59050; 84112; 85025; 85027; 85461; 86850; 86900; 86901; 87426; 90384; 99218; 99251; J7120; A4216; G0378; G0463; J2405; J2790

== ENCOUNTER → 2021-02-04 | Outpatient (CLI) | payer MEDICAID, SELFPAY ==
[2021-02-07 20:08] LABS: Chlamydia By Nucleic Acid AMP Negative (Negative)
[2021-02-08 08:29] LABS: Gonococcus By Nucleic Acid AMP Negative (Negative)
== END | disposition home or self-care (01) ==
LOC: LABSPEC 02-05 10:01
PROVIDERS: Visit Provider Obstetrics & Gynecology
DX: Z11.3 Encounter for screening for infections with a predominantly sexual mode of transmission (principal)
CPT/HCPCS: 87491; 87591

== ENCOUNTER → 2022-07-24 | Outpatient (CLI) | payer MEDICAID, SELFPAY ==
[2022-07-24 16:02] LABS: Absolute Lymphocyte Count 1.91 X10^3/uL (0.83-4.51); Absolute Neutrophil Count 8.8 X10^3/uL (2.0-7.7); Basophil# 0.05 X10^3/uL; Basophil% 0.4 % (0-1); Eosinophil# 0.19 X10^3/uL; Eosinophils% 1.6 % (0-5); Hematocrit 39.1 % (37-47); Hemoglobin 12.7 g/dL (12.0-15.0); Lymphocyte # 1.91 X10^3/ul (0.83-4.51); Lymphocyte % 16.1 % (19-41); Mean Corp Hgb Conc 32.5 g/dL (32-36); Mean Corpuscular Hgb 27.6 pg (27.0-32.0); Mean Platelet Vol. 11.6 fl (6.2-12.0); Monocyte# 0.85 X10^3/uL; Monocyte% 7.2 % (0-10); NRBC Flagged by Analyzer 0 % (0-5); Neutrophil # 8.82 X10^3/uL (2.7-7.7); Neutrophil % 74.4 % (47-70); Platelet Count 271 K/mm3 (150-450); RBC Distribution Width CV 14.6 % (11.6-14.6); RBC Distribution Width SD 45.5 fl (35.1-43.9); White Blood Count 11.9 K/mm3 (4.4-11.0)
[2022-07-25 09:42] LABS: HIV - WCH Non-Reactive (Nonreactive); Hepatitis B Surface Antigen Non-Reactive (Nonreactive); Hepatitis C Antibody Non-Reactive (Nonreactive); Rubella IgG Equiv (Nonreactive); Syphilis Antibodies Non-reactive
[2022-07-27 10:27] LABS: V-Zoster IgG (Immunity) 242 index (Immune >165)
[2022-07-28 21:07] LABS: Chlamydia By Nucleic Acid AMP Negative (Negative)
[2022-07-29 14:17] LABS: Gonococcus By Nucleic Acid AMP Negative (Negative)
== END | disposition home or self-care (01) ==
LOC: WOBLAB 15:43
PROVIDERS: Visit Provider Obstetrics & Gynecology
DX: Z34.81 Encounter for supervision of other normal pregnancy, first trimester (principal)
CPT/HCPCS: 36415; 85025; 86703; 86762; 86780; 86787; 86803; 87086; 87340; 87491; 87591

== ENCOUNTER → 2022-12-05 | Outpatient (CLI) | payer MEDICAID, SELFPAY ==
[2022-12-05 12:22] LABS: Absolute Lymphocyte Count 1.21 X10^3/uL (0.83-4.51); Absolute Neutrophil Count 8.7 X10^3/uL (2.0-7.7); Basophil# 0.03 X10^3/uL; Basophil% 0.3 % (0-1); Eosinophil# 0.12 X10^3/uL; Eosinophils% 1.1 % (0-5); Hematocrit 35.4 % (37-47); Hemoglobin 11.6 g/dL (12.0-15.0); Lymphocyte # 1.21 X10^3/ul (0.83-4.51); Lymphocyte % 11.4 % (19-41); Mean Corp Hgb Conc 32.8 g/dL (32-36); Mean Corpuscular Hgb 28.1 pg (27.0-32.0); Mean Corpuscular Volume 85.7 fL (81-99); Mean Platelet Vol. 11.4 fl (6.2-12.0); Monocyte# 0.49 X10^3/uL; Monocyte% 4.6 % (0-10); NRBC Flagged by Analyzer 0 % (0-5); Neutrophil % 82.1 % (47-70); Platelet Count 262 K/mm3 (150-450); RBC Distribution Width CV 15.8 % (11.6-14.6); RBC Distribution Width SD 49.1 fl (35.1-43.9); Red Blood Count 4.13 M/mm3 (4.2-5.4); White Blood Count 10.6 K/mm3 (4.4-11.0)
[2022-12-05 12:45] LABS: Glucose Challenge Gest 1H 50g 115 mg/dL (70-140)
[2022-12-05 13:02] LABS: Syphilis Antibodies Non-reactive
== END | disposition home or self-care (01) ==
LOC: WOBLAB 11:34
PROVIDERS: Visit Provider Obstetrics & Gynecology
DX: Z34.82 Encounter for supervision of other normal pregnancy, second trimester (principal)
CPT/HCPCS: 36415; 82950; 85025; 86780

== ENCOUNTER → 2022-12-30 | Outpatient (CLI) | payer MEDICAID, SELFPAY | END | disposition home or self-care (01) | LOC: WOBLAB 15:18 | PROVIDERS: Visit Provider Obstetrics & Gynecology | DX: Z34.83 Encounter for supervision of other normal pregnancy, third trimester (principal) | CPT/HCPCS: 36415; 86850 ==

== ENCOUNTER → 2023-02-18 | Outpatient (CLI) | payer MEDICAID, SELFPAY ==
[2023-02-18 15:12] LABS: Absolute Lymphocyte Count 1.43 X10^3/uL (0.83-4.51); Absolute Neutrophil Count 7.3 X10^3/uL (2.0-7.7); Basophil# 0.02 X10^3/uL; Basophil% 0.2 % (0-1); Eosinophil# 0.06 X10^3/uL; Eosinophils% 0.6 % (0-5); Hematocrit 33.5 % (37-47); Hemoglobin 10.3 g/dL (12.0-15.0); Lymphocyte # 1.43 X10^3/ul (0.83-4.51); Lymphocyte % 15.1 % (19-41); Mean Corp Hgb Conc 30.7 g/dL (32-36); Mean Corpuscular Hgb 25.3 pg (27.0-32.0); Mean Corpuscular Volume 82.3 fL (81-99); Mean Platelet Vol. 11.7 fl (6.2-12.0); Monocyte% 6.3 % (0-10); NRBC Flagged by Analyzer 0 % (0-5); Neutrophil # 7.34 X10^3/uL (2.7-7.7); Neutrophil % 77.5 % (47-70); Platelet Count 249 K/mm3 (150-450); RBC Distribution Width CV 15.9 % (11.6-14.6); RBC Distribution Width SD 47.1 fl (35.1-43.9); Red Blood Count 4.07 M/mm3 (4.2-5.4); White Blood Count 9.5 K/mm3 (4.4-11.0)
== END | disposition home or self-care (01) ==
LOC: WOBLAB 14:13
PROVIDERS: Visit Provider Nurse Practitioner Women's Health
DX: Z34.83 Encounter for supervision of other normal pregnancy, third trimester (principal); Z36.85 Encounter for antenatal screening for Streptococcus B; Z3A.00 Weeks of gestation of pregnancy not specified
CPT/HCPCS: 36415; 85025; 87077; 87081; 87186

== ENCOUNTER 2023-02-21 19:40 | Outpatient (CLI) | payer MEDICAID, SELFPAY ==
[2023-02-21 20:01] VITALS: BP 117/76; PULSE 100; O2SAT 99
[2023-02-21 20:05] VITALS: PULSE 98; TEMP 36.8; O2SAT 100
[2023-02-21 20:15] VITALS: BMI 33.7
--- NOTE | 2023-02-22 09:25 | OB.TRI.NOTE ---
HPI - General General Date of Service: 02/21/23 HPI Narrative SHARON MERCADO, is a 27 F who presents with hip pain PFSH PFSH Home Medications 1 tab PO/SL DAILY 02/21/23 [History Last Taken 02/20/23] sertraline 50 mg tablet (Zoloft) 75 mg PO DAILY Check with primary doctor 02/21/23 [History Last Taken 02/20/23 21:00] Allergy/AdvReac Type Severity Reaction Status Date / Time oxycodone Allergy Anaphylaxis Verified 02/21/23 20:15 Social History Smoking Status: Former smoker History Elective abortions Hx Para 0 Spontaneous abortions Hx # Term Pregnancies Ectopic pregnancies Hx # Pregnancies Multiple births # of living children NST FHR Rate Baby A Baseline: 120 Variability:: Moderate Accelerations:: 15 x 15 Decelerations:: None NST Reactive:: Yes Uterine Activity:: quiet Assessment & Plan (1) : PLAN: Called by nursing with triage report patient with hip pain that is unresolved. Patient denies trauma and denies contractions, denies fevers and chills. Per nursing cervical dilation unchanged from office. [place] quiet. Reviewed possibilities with nursing for causes, discussed to offer patient Flexeril for pain and discussed with nursing to discuss risks of taking Flexeril in . Call back from nursing after discussion with patient about Flexeril and patient declines Flexeril. Okay to discharge home and follow-up at scheduled appointments
== END 2023-02-21 21:00 | disposition home or self-care (01) ==
LOC: WPOUT 19:45 → WP 19:46
PROVIDERS: Visit Provider Obstetrics & Gynecology
DX: O99.891 Other specified diseases and conditions complicating pregnancy (principal); M25.559 Pain in unspecified hip; Z3A.00 Weeks of gestation of pregnancy not specified; Z79.899 Other long term (current) drug therapy
CPT/HCPCS: 59025; 59050; 99221; G0378

== ENCOUNTER 2023-02-25 02:28 | Inpatient (IN) | payer MEDICAID, SELFPAY ==
[2023-02-25] VITALS (36 sets, daily range): BP systolic 98–127; BP diastolic 46–72; PULSE 72–103; RESP 12–21; TEMP 36.2–36.8; O2SAT 96–100; BMI 33.7
--- NOTE | 2023-02-25 00:25 | HP.PCM.OB_ITS ---
History and Physical Date of Admission: 02/25/23 HPI: 27-year-old at 37/6 weeks, LES 03/12/2023 by first trimester ultrasound, presenting with contractions. Denies leaking of fluid, vaginal bleeding. Reports movement. Denies headache vision changes, chest pain or shortness of breath, nausea or vomiting, diarrhea or constipation, fevers or chills. complicated by: Shortened cervical length status post vaginal progesterone, depression on Zoloft, obesity. OB/UN history: G1: 39-week section Medical history: 1. Depression 2. Obesity Surgical history: 1. section Social history: Denies alcohol, drug use. reports hx of vaping. Allergies: 1. Oxycodone causes anaphylaxis Family history: No history of blood clots or bleeding disorders Review of system: Negative otherwise stated above Physical exam Vitals: pending General: In no acute distress, comfortable with contractions Cardiorespiratory: No increased effort Abdomen: Soft, nontender, gravid Extremities: Minimal edema Neurologic: Cranial nerves II through XII grossly intact, no focal deficits Musculoskeletal: Moves all extremities equally Cervical exam: 2.5 cm per RN heart rate:135/mod micheline/+accel/no decel [place]: q5 Assessment/plan: 27-year-old at 37/6 weeks, LES 03/12/2023 by first trimester ultrasound, presenting with contractions. ?Rule out labor. We will draw CBC and type and screen and give IV fluid hydration. We will plan to recheck cervix. ? GBS positive ? Plan for repeat section and bilateral salpingectomy.
[2023-02-25] MEDS: Lactated Ringers 1,000 ML 200 ML IV (01:15)
[2023-02-25 01:31] LABS: Absolute Neutrophil Count 10.2 X10^3/uL (2.0-7.7); Basophil# 0.04 X10^3/uL; Basophil% 0.3 % (0-1); Eosinophil# 0.16 X10^3/uL; Eosinophils% 1.2 % (0-5); Hematocrit 33.3 % (37-47); Hemoglobin 10.3 g/dL (12.0-15.0); Lymphocyte % 15.4 % (19-41); Mean Corp Hgb Conc 30.9 g/dL (32-36); Mean Corpuscular Hgb 25.3 pg (27.0-32.0); Mean Corpuscular Volume 81.8 fL (81-99); Mean Platelet Vol. 11.7 fl (6.2-12.0); Monocyte# 1.08 X10^3/uL; Monocyte% 7.9 % (0-10); NRBC Flagged by Analyzer 0 % (0-5); Neutrophil # 10.19 X10^3/uL (2.7-7.7); Neutrophil % 74.8 % (47-70); Platelet Count 240 K/mm3 (150-450); RBC Distribution Width CV 15.4 % (11.6-14.6); RBC Distribution Width SD 45.5 fl (35.1-43.9); Red Blood Count 4.07 M/mm3 (4.2-5.4); White Blood Count 13.6 K/mm3 (4.4-11.0)
[2023-02-25] MEDS: Lactated Ringers 1,000 ML 999 ML IV ×2 (02:30→05:50)
[2023-02-25] MEDS: Acetaminophen 500 MG Tablet 1000 MG PO ×4 (02:48→21:28)
[2023-02-25] MEDS: Sodium Citrate/Citric Acid 30 ML UDC PO (02:48)
[2023-02-25] MEDS: Cefazolin 2 GM in 0.9% Normal Saline 100 ML IV ×3 (03:00→20:07)
[2023-02-25 03:24] LABS: Syphilis Antibodies Non-reactive
--- NOTE | 2023-02-25 04:02 | EX.PCM.OBRPT ---
Maternal Data Information Final LES: 03/12/23 Details Operative Information Date of Procedure: 02/25/23 Pre-Operative Diagnosis: Gill intrauterine , labor, desires permanent sterilization Post-Operative Diagnosis: Gill intrauterine , labor, desires permanent sterilization Indications Narrative: 27-year-old at 37/6 weeks presenting in labor. Plan for repeat section and bilateral tubal ligation. All risk, benefits, alternatives discussed with patient.? Risk include but are not limited to: Risk of bleeding to the point of transfusion, infection, injury to surrounding tissue including bowel/bladder potentially requiring prolonged Crouch catheter use, VTE, ICU admission.? Patient desires bilateral tubal ligation, has completed childbearing.? Aware that this procedure is permanent.? If she were to become she is to notify provider immediately, due to risk of ectopic .? Classification: DANIEL Type of Anesthesia: Spinal Estimated Blood Loss: 800 cc Fluids Replaced: 1000 cc Findings Description of Procedure: Procedure: Patient taken to the operating room and spinal anesthesia placed. Patient placed in supine position with left lateral tilt. Prepped and draped in the usual sterile fashion. Pfannenstiel skin incision made with scalpel and carried down through subcutaneous tissue. Noting dense fascial and subcutaneous adhesions. Fascia nicked on either side of midline and extended bilaterally using [place] scissors. Dillon clamps placed at the superior fascial edge which was tented up and underlying rectus muscles were dissected off sharply and bluntly at midline. Dillon clamps moved to the inferior fascial edge which was tented up and underlying rectus muscles were dissected off in a similar fashion. Rectus muscles were superiorly at the midline using hemostat. Careful dissection to separate rectus muscles using Bovie was completed. Peritoneum identified and grasped with hemostats, incised with Metzenbaum scissors. Extended bluntly. Bladder blade placed. Lower uterine segment noted to be very thin. Low transverse uterine incision made with scalpel and extended bluntly. Meconium fluid. Hand placed into the uterine cavity and head elevated to the level of the hysterotomy. With the assistance of gentle fundal pressure head descended to the hysterotomy. Unable to deliver with fundal pressure alone. Vacuum applied once. Patient verbally consented, risks and benefits reviewed. Head delivered followed by body. Nuchal cord x1, loose, reduced. Cord clamped and cut. Baby to nursing. Manual extraction of placenta. Uterus exteriorized and cleared of all clots. Hysterotomy closed with a running stitch. Right fallopian tube grasped with Crystal clamps and removed along the mesosalpinx using LigaSure device. Left fallopian tube grasped with [place] clamps and removed along the mesosalpinx using LigaSure device. Bilateral mesosalpinx hemostatic. Uterus replaced into the abdominal cavity. Hemostasis of the mesosalpinx and hysterotomy closure confirmed. Peritoneum reapproximated using a running stitch. Muscle reapproximated using horizontal mattress suture. Fascia closed with running stitch. Subcutaneous tissue reapproximated with suture. Skin closed with a running subcuticular stitch. At the end of the procedure all needle, lap, sponge counts were correct. Urine output: 200 cc clear urine Infant A Gender: Female (1 minute): 8 (5 minute): 9 Complications Complications: None
--- NOTE | 2023-02-25 04:22 | FALS_PTH ---
PATIENT: SHARON MERCADO LOC: [facility] U#:[id number] AGE/SX: 27/F ROOM: WP010 RE02/25/[address]: Dr. Ashley Caban DO : 1995 BED: 1 DIS: 02/26/2023 SPEC #: [id number] RECD: 02/25/23 05:33 STATUS: PEDRO PABLO RECathy #: [id number] GUSTAVO: 02/25/23 04:[address]: Ashley Caban DEPT: SURGICAL PATHOLOGY RECD BY: Cullen Méndez ENTERED: 02/25/23 11:35 SP TYPE: FALL TUBES OTHR DR: Karen Primary Care Phys Tissues: Fallopian tube Procedures: Surgery Specimen Level II HEADER OPERATION: Tubal ligation PRE-OP DIAGNOSIS: Sterilization TISSUE SUBMITTED: Fallopian tubes, suture in right tube MICROSCOPIC DIAGNOSIS Bilateral fallopian tubes, salpingectomy: Bilateral fallopian tubes, no pathologic diagnosis. Right paratubal cyst. SJ:maxi 02/26/2023 MICROSCOPIC DESCRIPTION Slides are reviewed. GROSS DESCRIPTION Received in fixative is one container labeled with the patient's name and designated bilateral fallopian tubes, suture in right. The specimen consists of bilateral fallopian tubes including fimbrial ends. The right fallopian tube measures 8.0 cm in length and 0.5 cm in diameter and the left fallopian tube measures 7.0 cm in length and 0.6 cm in diameter. Sections reveal unremarkable cut surfaces. Meal Room Hand sections are submitted in two cassettes as follows: 1 ? right fallopian tube, 2 ? left fallopian tube. / REBECCA:maxi 02/25/2023 TC:4 CPT: 18619 x2
[2023-02-25] MEDS: Oxytocin 15 Units/NS 250ml 15 UNITS/250 ML IV.SOLN 83 UNITS IV ×2 (04:32→06:13)
[2023-02-25] MEDS: Methylergonovine 0.2 MG/ML Ampul IM (05:24)
[2023-02-25] MEDS: Carboprost Tromethamine 250 MCG/ML Ampul IM (05:34)
[2023-02-25 05:35] LABS: Pathology Specimen OB SEE PATHOLOGY REPORT
[2023-02-25] MEDS: miSOPROStol 200 MCG Tablet 1000 MCG RC (05:37)
[2023-02-25 05:59] LABS: Hematocrit 29.7 % (37-47); Hemoglobin 9.2 g/dL (12.0-15.0)
[2023-02-25] MEDS: 0.9% Saline Lock 10 ML Syringe IV ×3 (06:20→20:06)
--- NOTE | 2023-02-25 06:30 | PCM.PN.OB ---
Subjective Subjective DPatient asymptomatic. No, dizziness, lightheadedness. Pain well controlled. Objective Data Objective Data Vital Signs: Vital Signs Temp Pulse Resp BP Pulse Ox O2 Del Method 97.7 F L 91 12 111/59 L 98 Room Air 02/25/23 04:20 02/25/23 04:20 02/25/23 04:20 02/25/23 04:20 02/25/23 04:20 02/25/23 04:20 Oxygen Delivery Method Room Air Weight: 100.879 kg Body Mass Index (BMI) 33.7 Intake & Output: Intake and Output for Last 24 Hours 02/23/23 02/24/23 02/25/23 23:59 23:59 23:59 Intake Total 1114.5 / 1114.5 Output Total 250 / 250 Balance 864.5 / 864.5 Lab / Micro Data Attestation: I reviewed the patient's lab results. Result Diagrams: 02/25/23 05:45 Labs: Laboratory Results - last 24 hr 02/25/23 01:15: Blood Type B NEGATIVE, Antibody Screen NEGATIVE 02/25/23 01:15: WBC 13.6 H, RBC 4.07 L, Hgb 10.3 L, Hct 33.3 L, MCV 81.8, MCH 25.3 L, MCHC 30.9 L, RDW Std Deviation 45.5 H, RDW Coeff of Jeannette 15.4 H, Plt Count 240, MPV 11.7, Immature Gran % (Auto) 0.400, Neut % (Auto) 74.8 H, Lymph % (Auto) 15.4 L, [place] % (Auto) 7.9, Eos % (Auto) 1.2, Baso % (Auto) 0.3, Absolute Neuts (auto) 10.2 H, Absolute Lymphs (auto) 2.10, Nucleated RBC % 0 02/25/23 01:15: Syphilis Total Ab Non-reactive 02/25/23 05:45: Hgb 9.2 L, Hct 29.7 L Physical Exam Const alert, oriented x3 and no apparent distress HEENT normocephalic Resp normal respiratory effort Cardio regular rate GI soft to palpation and no masses GI Narrative: Uterus firm below umbilicus. Mild tenderness right fundus. No incisional tenderness. Narrative: Large amount of clot removed on bimanual exam from lower uterine segment and cervix. Extremity no pedal edema Neuro no focal motor deficits and no sensory deficits noted Assessment & Plan (1) Delivery by section: PLAN: Postop day 0 status post repeat section and bilateral salpingectomy. Called for bleeding postoperatively. Patient given Methergine. Called again and patient given Hemabate and Cytotec. Called again by RN. Reporting that uterus was firm with massage and then soften. Notified that she had been given the above medications. Order for tranexamic acid 1 g once and to bolus the rest of the Pitocin bag, followed by second bag of Pitocin at routine rate, 1 L LR bolus, CBC. Patient then seen and evaluated. Bedside ultrasound completed noting some clot in the uterine cavity, no blood flow. No evidence of placental tissue. Crouch was draining well, bladder drained/empty on ultrasound. Bimanual exam completed noting large amount of clot in the cervix and lower uterine segment, removed. After removal of clot, uterus remained firm, with minimal bleeding. EBL from surgery 800 cc. Per RN 150 cc in the OR. EBL in the room 1016 cc. Total EBL 1966 cc. CBC showing a slight decrease in hemoglobin. Likely will take longer to equilibrate. We will plan for CBC at 1300 today. Medications patient received: Methergine 0.2 mg at 0524, Hemabate 0.25 mg at 0534, Cytotec 1,[address] at 0537. TXA 1 gm. Pitocin bag bolused, to be followed by additional bag of pitocin. 1L LR bolus. Vitals remained stable. Patient asymptomatic. We will plan p.o. Methergine in 2 hours, followed by every 6 hours for 24 hours. CBC at 1300. Ancef 2 g every 8 hours for 24 hours prophylactically for bimanual massage in the postoperative state. Patient to remain 1 to 1 nursing for additional 2 hours. Reviewed findings, possible causes of hemorrhage, plan of care with patient and her partner. Reviewed findings and plan of care with bedside nurses as well. All questions answered. (2) hemorrhage:
[2023-02-25] MEDS: Lactated Ringers 1,000 ML 100 ML IV (06:52)
[2023-02-25] MEDS: Ketorolac 30 MG/ML Syringe IV ×3 (08:13→20:03)
--- NOTE | 2023-02-25 08:18 | NURSING ---
See hemorrage checklist for meds given, communication with physician, and calculation of blood loss. TENA Ashton
[2023-02-25] MEDS: Senna/Docusate Sodium 1 Tablet PO (09:41)
[2023-02-25 14:01] LABS: Hematocrit 26.6 % (37-47); Hemoglobin 8.6 g/dL (12.0-15.0); Mean Corp Hgb Conc 32.3 g/dL (32-36); Mean Corpuscular Volume 80.4 fL (81-99); Mean Platelet Vol. 11.6 fl (6.2-12.0); Platelet Count 191 K/mm3 (150-450); RBC Distribution Width CV 15.4 % (11.6-14.6); RBC Distribution Width SD 44.9 fl (35.1-43.9); Red Blood Count 3.31 M/mm3 (4.2-5.4); White Blood Count 12.2 K/mm3 (4.4-11.0)
--- NOTE | 2023-02-25 15:45 | CASEMGMT ---
Social Work Brief Assessment - Labor and Delivery Unit Patient Address: [address] [place] [address] Phone number: [phone] Date of Referral/Notification: 02-25-23 Time of Referral: [phone] Referred By: Dr. Ashley Garcia, Reason for Referral: Maternal Mental Health - History of PPD Date of Intervention: 02.25.23 Time of Intervention: Approximately 1525 Informant: Medical record and mother of baby (MOB) Jazmin Aranda History: MOB is a 27 year old single female, involved with the father of baby (FOB) Darrick Aranda. FOB is the father to both of MOB's children. MOB is G2, P1 to 2 after delivering baby girl Shakira Aranda on 02.25.23. Older child at home, a daughter, is Frida Aranda (12.25.20). PNC with [place] and no reported concerns with seeking care. Infant deliver weighing 7 pounds 15 ounces. Apgars 9 and 9 at 1 and 5 minutes of life. FOB is employed and no reported concerns with finances. 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 MOB has WIC and active with S. MOB reports history of depression, and after Frida was born. Started on Zoloft during this , admitting this was a rough one. MOB reports to feel better since starting antidepressant. No reports of any SI history, concerns about substances, and denies having concerns about DV. Assessment: Met with MOB, introducing to self and social work role. MOB pleasant and willing to speak with high school social science teacher. FOB sleeping on couch and appearing to sleep soundly during visit. MOB okay having conversation with FOB sleeping. Hand wrote out DV questions, and MOB denied. MOB reports to have necessary supples to care for baby, no concern about meeting basic needs, and will have help from FOG at home going. Reports additional support from family and MOB's mother. MOB reports to feel good mood suh and plans to stay on Zoloft in the timeframe. No voiced ounces by nursing staff regarding parent child interactions or bonding. MOB accepting to receive information on [facility] and PPD packet. Reviewed shaken baby prevention, safe sleeping and PPD. Plan: MOB and to home when ready. SW to follow back up with MOB for provision of PCP list, PPD and [facility] resources information. -LIZ Davila, NON DESTRUCTIVE TESTING SCIENTIST
--- NOTE | 2023-02-25 16:24 | NURSING ---
This RN called David and talked to TENA Muhammad and updated her on Pt. feeling dizzy around 1300 when I got her up, and the CBC of 8.6. This RN also updated RN on last BP of 98/48 but patient was not symptomatic with blood pressure.
[2023-02-25] MEDS: Enoxaparin 40 MG/0.4 ML Syringe SC (17:00)
--- NOTE | 2023-02-25 19:35 | NURSING ---
David Muhammad called this nurse and stated that Dr. Martin Caban said he does not want a CBC tomorrow unless patient is symptomatic.
[2023-02-25] MEDS: Sertraline 50 MG Tablet 75 MG PO (20:02)
[2023-02-26 00:15] VITALS: BP 96/51; PULSE 85; RESP 15; TEMP 36.6; O2SAT 95
[2023-02-26] MEDS: 0.9% Saline Lock 10 ML Syringe IV ×2 (02:44→11:28)
[2023-02-26] MEDS: Ketorolac 30 MG/ML Syringe IV (02:45)
[2023-02-26] MEDS: Acetaminophen 500 MG Tablet 1000 MG PO ×2 (02:45→10:04)
[2023-02-26] MEDS: Cefazolin 2 GM in 0.9% Normal Saline 100 ML IV ×2 (03:58→11:28)
[2023-02-26] MEDS: Lactated Ringers 1,000 ML 100 ML IV (04:00)
[2023-02-26 04:08] VITALS: BP 99/58; PULSE 76; RESP 16; TEMP 36.9; O2SAT 96
[2023-02-26 08:09] VITALS: BP 94/61; PULSE 82; RESP 17; TEMP 36.6; O2SAT 98
--- NOTE | 2023-02-26 08:40 | DCINST_ITS ---
Discharge Instructions Diet Discharge Diet: No restrictions Activity Discharge Activity: Return to Normal Activity, May Drive, May Shower and - (No tub baths for 2 weeks) May resume sexual activity in: 4-6 weeks Lifting Restrictions: No lifting over 25 pounds for 2 to 3 weeks Dressing / Incision Call your doctor if your incision/area has: Continuous Slow Oozing and Foul Smelling Discharge Call your doctor if you observe: Fever of 101 or Higher, Shortness of breath and Chest pain Follow Up Care Please Follow Up With: Martin Caban MD When: 2 weeks postoperatively Test Results: Test results from this visit will be discussed in further detail at your follow- up appointment, if applicable. Discharge Plan Admission Admit Date/Time: 02/25/23 02:28 Primary Reason for Your Visit: section and tubal ligation Attending Provider: Ashley Caban Primary Care Provider: Karen Parra Primary Discharge Orders/Prescriptions Prescriptions: No Action sertraline [Zoloft] 50 mg Tablet 75 mg PO DAILY 1 tab PO/SL DAILY Referrals / Follow Up: Care Physician,No Primary [Primary Care Provider] - Disposition Disposition (needs filled in before D/C Order can be placed): Home, Self Care
--- NOTE | 2023-02-26 08:41 | PCM.PN.OB ---
Subjective Subjective No overnight complaints. Denies dizziness, weakness, chest pain, shortness of breath. Ambulating with ease, tolerating regular diet Objective Data Objective Data Vital Signs: Vital Signs Temp Pulse Resp BP Pulse Ox O2 Del Method 97.8 F 82 17 94/61 98 Room Air 02/26/23 08:09 02/26/23 08:09 02/26/23 08:09 02/26/23 08:09 02/26/23 08:09 02/26/23 08:09 Oxygen Delivery Method Room Air Weight: 222 lb 6.4 oz Body Mass Index (BMI) 33.7 Intake & Output: Intake and Output for Last 24 Hours 02/24/23 02/25/23 02/26/23 23:59 23:59 23:59 Intake Total 3572.83 / 3572.83 243.33 / 243.33 Output Total 4466 / 4466 600 / 600 Balance -893.17 / -893.17 -356.67 / -356.67 Lab / Micro Data Result Diagrams: 02/25/23 13:15 Labs: Laboratory Results - last 24 hr 02/25/23 13:15: WBC 12.2 H, RBC 3.31 L, Hgb 8.6 L, Hct 26.6 L, MCV 80.4 L, MCH 26.0 L, MCHC 32.3, RDW Std Deviation 44.9 H, RDW Coeff of Jeannette 15.4 H, Plt Count 191, MPV 11.6 Physical Exam Const alert, oriented x3, no apparent distress, average body habitus, healthy appearing and well nourished HEENT normocephalic and moist oral mucous membranes Eyes PERRL Neck full ROM Resp normal respiratory effort, no retractions and no use of accessory muscles GI GI Narrative: Soft, nontender, bandage clean dry and intact, uterus firm and below umbilicus Extremity normal to inspection and full ROM Neuro moves all extremities and no focal motor deficits Psych mental status grossly normal, affect normal, speech normal and activity/motor behavior normal Assessment & Plan (1) Delivery by section: PLAN: Postop day 1 status post repeat section. Breast-feeding. Pain well controlled. hemorrhage, remained will and patient remains asymptomatic vital signs stable. Patient did take ongoing iron. Wishes for discharge home today. Okay for discharge home today if okay with mountain bike guide
[2023-02-26] MEDS: Enoxaparin 40 MG/0.4 ML Syringe SC (10:05)
[2023-02-26] MEDS: Senna/Docusate Sodium 1 Tablet PO (10:05)
--- NOTE | 2023-02-26 14:03 | NURSING ---
pt second IV discontinued in Right AC
[2023-02-26 14:05] VITALS: BP 120/63; PULSE 86; RESP 16; TEMP 36.7; O2SAT 98
--- NOTE | 2023-02-26 16:00 | CASEMGMT ---
Social Work Labor and Delivery Unit Provided MOB with PCP list off of insurance network, [facility], and PPD packet. MOB denies any other needs or concerns with home going. -LIZ Davila, RESISTANCE MACHINE WELDER SETTER
== END 2023-02-26 14:45 | disposition home or self-care (01) | DRG 539 ==
LOC: WPOUT 02:31 → WP 02:31
PROVIDERS: Admitting Provider Student in an Organized Health Care Education/Training Program; Referring Provider Student in an Organized Health Care Education/Training Program; Visit Provider Student in an Organized Health Care Education/Training Program
DX: O26.873 Cervical shortening, third trimester (principal); O72.1 Other immediate postpartum hemorrhage; O99.824 Streptococcus B carrier state complicating childbirth; O99.344 Other mental disorders complicating childbirth; F32.A Depression, unspecified; Z37.0 Single live birth; Z3A.37 37 weeks gestation of pregnancy; Z30.2 Encounter for sterilization; O69.81X0 Labor and delivery complicated by cord around neck, without compression, not applicable or unspecified; O99.214 Obesity complicating childbirth; E66.9 Obesity, unspecified; O34.219 Maternal care for unspecified type scar from previous cesarean delivery
CPT/HCPCS: 59050; 85014; 85018; 85025; 85027; 86780; 86850; 86900; 86901; 88302; 99221; 99406; J7120; A4216; G0378; J2405

== ENCOUNTER → 2023-03-11 | Outpatient (CLI) | payer MEDICAID, SELFPAY ==
[2023-03-11 14:51] LABS: Hemoglobin 10.3 g/dL (12.0-15.0); Mean Corp Hgb Conc 30.3 g/dL (32-36); Mean Corpuscular Hgb 24.7 pg (27.0-32.0); Mean Corpuscular Volume 81.5 fL (81-99); Mean Platelet Vol. 11.3 fl (6.2-12.0); Platelet Count 368 K/mm3 (150-450); RBC Distribution Width CV 15.1 % (11.6-14.6); RBC Distribution Width SD 44.9 fl (35.1-43.9); Red Blood Count 4.17 M/mm3 (4.2-5.4)
[2023-03-11 15:17] LABS: T4 Free Direct 0.79 ng/dL (0.76-1.46)
== END | disposition home or self-care (01) ==
LOC: WOBLAB 13:30
PROVIDERS: Visit Provider Obstetrics & Gynecology
DX: G93.32 Myalgic encephalomyelitis/chronic fatigue syndrome (principal)
CPT/HCPCS: 36415; 84439; 84443; 85027